=== PATIENT | female | born 1935 | race Caucasian/White ===

== ENCOUNTER 2020-09-04 22:46 | Inpatient (IN) | payer OTHER ==
[2020-09-04] MEDS ORDERED: DEXAMETHASONE SOD PHOSPHATE 10 MG/1 ML VIAL IVPUSH ONE (23:50)
[2020-09-04] MEDS ORDERED: ALBUTEROL SO4 2.5/IPRATROPIUM 0.5 INH SOL 3 ML VIAL.NEB. NEB ONE ×2 (23:50→23:52)
[2020-09-05] MEDS ORDERED: FUROSEMIDE 40 MG/4 ML INJECTABLE VIAL ONE ×2 (00:07→12:09)
[2020-09-05] MEDS ORDERED: DEXAMETHASONE SOD PHOSPHATE 10 MG/1 ML VIAL ONE (00:07)
[2020-09-05 00:44] LABS: ARTERIAL BLD GAS O2 SATURATION 84.6 mmHg (95-98); ARTERIAL BLOOD GAS PO2 56.3 mmHg (80-100); ARTERIAL BLOOD GAS pH 7.275 (7.350-7.450)
[2020-09-05 01:22] LABS: BASO % 0.5 % (0-2.0); EOS % 0.1 % (0-4.5); HEMATOCRIT 35.3 % (32.4-45.2); LYMPH % 3.7 % (8-40); MCH 30.4 pg (25.7-33.7); MCHC 31.3 g/dl (32.0-36.0); MEAN CELL VOLUME 97.2 fl (80-96); MEAN PLT VOLUME 7.7 fl (7.5-11.1); MONO % 4.6 % (3.8-10.2); NEUT % 91.1 % (42.8-82.8); PLATELET COUNT 389 K/MM3 (134-434); RBC 3.63 M/mm3 (3.60-5.2); RDW 21.2 % (11.6-15.6); WHITE BLOOD COUNT 9.1 K/mm3 (4.0-10.0)
[2020-09-05 01:30] LABS: INR 1.47 (0.83-1.09); PROTHROMBIN TIME (PATIENT) 17.6 SEC (9.7-13.0)
[2020-09-05 01:32] LABS: ACTIVATED PTT 31.7 SECONDS (25.2-36.5)
[2020-09-05 01:44] LABS: CHLORIDE 102 mmol/L (98-107); SODIUM 139 mmol/L (136-145)
[2020-09-05 01:46] LABS: CALCIUM 9.1 mg/dL (8.5-10.1)
[2020-09-05 01:47] LABS: ALBUMIN 3.1 g/dl (3.4-5.0); ANION GAP 0 MMOL/L (8-16); BLOOD UREA NITROGEN 26.6 mg/dL (7-18); CO2 37 mmol/L (21-32)
[2020-09-05 01:50] LABS: CREATININE 1.1 mg/dL (0.55-1.3); SGOT/AST 16 U/L (15-37); SGPT/ALT 7 U/L (13-61)
[2020-09-05 01:52] LABS: BILIRUBIN,TOTAL 0.6 mg/dL (0.2-1); TOT PROT 6.5 g/dl (6.4-8.2)
[2020-09-05 01:53] LABS: ALK PHOS 96 U/L (45-117)
[2020-09-05 01:55] LABS: N-TERMINAL BNP 3482.6 pg/ml (5-450)
[2020-09-05] MEDS ORDERED: FUROSEMIDE 40 MG/4 ML INJECTABLE VIAL IVPUSH ONE (01:56)
[2020-09-05 01:58] LABS: GLUCOSE,RANDOM 26 mg/dL (74-106)
[2020-09-05] MEDS ORDERED: DEXTROSE 50%-WATER 25 GM/50 ML DISP.SYRIN ONE (01:59)
[2020-09-05] MEDS ORDERED: DEXTROSE 50%-WATER - 25 GM/50 ML VIAL IVPUSH ONE (01:59)
[2020-09-05 02:36] LABS: ANISOCYTOSIS 2+; MACROCYTOSIS 1+; PLATELET ESTIMATE NORMAL
[2020-09-05] MEDS ORDERED: ALBUTEROL SO4 HFA INHALER IH PRN (04:39)
[2020-09-05] MEDS ORDERED: ALBUTEROL SO4 0.083% IH SOL 2.5 MG/3 ML VIAL.NEB. NEB PRN (04:39)
[2020-09-05] MEDS ORDERED: PANTOPRAZOLE 40 MG TABLET ONE (05:05)
[2020-09-05] MEDS ORDERED: CARBIDOPA/LEVODOPA 25/100 TABLET (FP) ONE ×2 (05:05→22:48)
[2020-09-05 05:37] LABS: ARTERIAL BLOOD GAS BASE EXCESS 3.2 mmol/L (-2-2); ARTERIAL BLOOD GAS PO2 69.6 mmHg (80-100); ARTERIAL BLOOD GAS pH 7.274 (7.350-7.450)
[2020-09-05 05:43] LABS: VENT MODE S/T
[2020-09-05] MEDS ORDERED: FUROSEMIDE 40 MG/4 ML INJECTABLE VIAL IVPUSH SCH (06:00)
[2020-09-05] MEDS: PANTOPRAZOLE 40 MG TABLET PO SCH (06:23)
[2020-09-05 07:34] LABS: BASO % 0.3 % (0-2.0); HEMATOCRIT 30.5 % (32.4-45.2); HEMOGLOBIN 9.7 GM/dL (10.7-15.3); MCH 29.8 pg (25.7-33.7); MCHC 31.7 g/dl (32.0-36.0); MEAN PLT VOLUME 7.5 fl (7.5-11.1); MONO % 1.2 % (3.8-10.2); NEUT % 94.5 % (42.8-82.8); PLATELET COUNT 370 K/MM3 (134-434); RBC 3.24 M/mm3 (3.60-5.2); RDW 20.9 % (11.6-15.6); WHITE BLOOD COUNT 7.1 K/mm3 (4.0-10.0)
[2020-09-05 07:47] LABS: CALCIUM 8.7 mg/dL (8.5-10.1)
[2020-09-05 07:48] LABS: BLOOD UREA NITROGEN 25.2 mg/dL (7-18); MAGNESIUM 2.3 mg/dL (1.8-2.4)
[2020-09-05 07:51] LABS: ALBUMIN 2.8 g/dl (3.4-5.0); CREATININE 0.9 mg/dL (0.55-1.3); PHOSPHOROUS 4.4 mg/dL (2.5-4.9)
[2020-09-05 07:52] LABS: BILIRUBIN,TOTAL 0.6 mg/dL (0.2-1); TOT PROT 6.3 g/dl (6.4-8.2)
[2020-09-05] MEDS ORDERED: PATIENT'S OWN MEDICATION (NON-FORMULARY) (Fluticasone Propionate [Flovent Hfa] 44 MCG Inha IH SCH (10:00)
[2020-09-05 10:20] LABS: ANISOCYTOSIS 1+; MACROCYTOSIS 1+; PLATELET ESTIMATE NORMAL
[2020-09-05] MEDS ORDERED: APIXABAN 5 MG TABLET ONE ×2 (12:09→22:47)
[2020-09-05] MEDS: APIXABAN 5 MG TABLET PO SCH (12:33)
[2020-09-05] MEDS: FUROSEMIDE 40 MG/4 ML INJECTABLE VIAL IVPUSH SCH ×2 (12:33→14:36)
[2020-09-05] MEDS: TIOTROPIUM/OLODATEROL HCL (STIOLTO) 4 GM INHALER IH SCH (12:42)
[2020-09-05 19:26] LABS: PH,URINE 5.5 (5.0-8.0); URINE APPEARANCE CLEAR; URINE BILIRUBIN NEGATIVE (NEGATIVE); URINE COLOR YELLOW; URINE GLUCOSE (UA) NEGATIVE (NEGATIVE); URINE KETONE NEGATIVE (NEGATIVE); URINE LEUK ESTERASE TRACE (NEGATIVE); URINE NITRITE POSITIVE (NEGATIVE); URINE PROTEIN NEGATIVE (NEGATIVE); URINE UROBILINOGEN 0.2 mg/dL (0.2-1.0)
[2020-09-05 19:31] LABS: EPI CELLS 7.7 /uL (0-25.1); HYALINE CASTS 0.51 /uL (0-3.1); URINE BACTERIA 8527.2 /uL (0-1359); URINE RBC 3.9 /uL (0-23.9); URINE WBC 52.9 /uL (0-25.8)
[2020-09-05] MEDS ORDERED: ATORVASTATIN CA 40 MG TABLET (FP) ONE (22:47)
[2020-09-06] MEDS: ATORVASTATIN CA 40 MG TABLET (FP) PO SCH ×2 (00:38→21:46)
[2020-09-06] MEDS: APIXABAN 5 MG TABLET PO SCH (00:38)
[2020-09-06] MEDS: MOMETASONE FUROATE 110 MCG/IH INHALER IH SCH ×2 (00:38→21:51)
[2020-09-06] MEDS: PRAMIPEXOLE DIHYDROCHLORIDE 0.5 MG TABLET PO SCH ×2 (00:39→21:46)
[2020-09-06] MEDS ORDERED: PT OWN MED DRAWER 7, Y5N ONE ×4 (05:31→21:07)
[2020-09-06] MEDS: FUROSEMIDE 40 MG/4 ML INJECTABLE VIAL IVPUSH SCH ×2 (05:34→14:06)
[2020-09-06] MEDS: PANTOPRAZOLE 40 MG TABLET PO SCH (06:01)
[2020-09-06 07:20] LABS: BASO % 0.2 % (0-2.0); HEMATOCRIT 30.3 % (32.4-45.2); HEMOGLOBIN 9.6 GM/dL (10.7-15.3); LYMPH % 5.2 % (8-40); MCH 29.5 pg (25.7-33.7); MCHC 31.8 g/dl (32.0-36.0); MEAN CELL VOLUME 92.9 fl (80-96); MEAN PLT VOLUME 7.4 fl (7.5-11.1); MONO % 8.7 % (3.8-10.2); NEUT % 85.9 % (42.8-82.8); PLATELET COUNT 412 K/MM3 (134-434); RBC 3.26 M/mm3 (3.60-5.2); RDW 20.6 % (11.6-15.6); WHITE BLOOD COUNT 12.3 K/mm3 (4.0-10.0)
[2020-09-06 07:36] LABS: CHLORIDE 99 mmol/L (98-107); SODIUM 138 mmol/L (136-145)
[2020-09-06 07:38] LABS: CALCIUM 9.1 mg/dL (8.5-10.1)
[2020-09-06 07:39] LABS: ANION GAP 1 MMOL/L (8-16); BLOOD UREA NITROGEN 36.9 mg/dL (7-18); CO2 39 mmol/L (21-32); GLUCOSE,RANDOM 129 mg/dL (74-106); MAGNESIUM 2.3 mg/dL (1.8-2.4)
[2020-09-06 07:42] LABS: PHOSPHOROUS 3.5 mg/dL (2.5-4.9); SGOT/AST 14 U/L (15-37); SGPT/ALT < 6 U/L (13-61)
[2020-09-06 07:47] LABS: TOT PROT 6.1 g/dl (6.4-8.2)
[2020-09-06 07:48] LABS: ALK PHOS 84 U/L (45-117)
[2020-09-06] MEDS: APIXABAN 2.5 MG TABLET PO SCH ×2 (09:16→21:46)
[2020-09-06] MEDS: TIOTROPIUM/OLODATEROL HCL (STIOLTO) 4 GM INHALER IH SCH (10:21)
[2020-09-07] MEDS ORDERED: PT OWN MED DRAWER 7, Y5N ONE ×3 (05:15→22:50)
[2020-09-07] MEDS: FUROSEMIDE 40 MG/4 ML INJECTABLE VIAL IVPUSH SCH ×2 (06:16→14:59)
[2020-09-07] MEDS: PANTOPRAZOLE 40 MG TABLET PO SCH (06:16)
[2020-09-07 07:00] LABS: BASO % 0.2 % (0-2.0); EOS % 0.1 % (0-4.5); HEMATOCRIT 30.8 % (32.4-45.2); HEMOGLOBIN 9.7 GM/dL (10.7-15.3); LYMPH % 6.8 % (8-40); MCH 29.4 pg (25.7-33.7); MCHC 31.6 g/dl (32.0-36.0); MEAN CELL VOLUME 93.2 fl (80-96); MEAN PLT VOLUME 7.1 fl (7.5-11.1); NEUT % 81.9 % (42.8-82.8); PLATELET COUNT 484 K/MM3 (134-434); RBC 3.31 M/mm3 (3.60-5.2); RDW 20.3 % (11.6-15.6); WHITE BLOOD COUNT 11.1 K/mm3 (4.0-10.0)
[2020-09-07 07:13] LABS: BLOOD UREA NITROGEN 42.7 mg/dL (7-18); CALCIUM 9.1 mg/dL (8.5-10.1); MAGNESIUM 2.1 mg/dL (1.8-2.4)
[2020-09-07 07:14] LABS: GLUCOSE,RANDOM 102 mg/dL (74-106)
[2020-09-07 07:15] LABS: SGPT/ALT < 6 U/L (13-61)
[2020-09-07 07:16] LABS: CREATININE 1.1 mg/dL (0.55-1.3); PHOSPHOROUS 3.6 mg/dL (2.5-4.9); SGOT/AST 14 U/L (15-37)
[2020-09-07 07:17] LABS: BILIRUBIN,TOTAL 0.6 mg/dL (0.2-1); TOT PROT 6.2 g/dl (6.4-8.2)
[2020-09-07 07:18] LABS: ALK PHOS 81 U/L (45-117)
[2020-09-07 07:20] LABS: ANION GAP 2 MMOL/L (8-16); CHLORIDE 97 mmol/L (98-107); CO2 40 mmol/L (21-32); SODIUM 139 mmol/L (136-145)
[2020-09-07] MEDS: APIXABAN 2.5 MG TABLET PO SCH ×2 (09:58→22:06)
[2020-09-07] MEDS: TIOTROPIUM/OLODATEROL HCL (STIOLTO) 4 GM INHALER IH SCH (09:58)
[2020-09-07] MEDS ORDERED: cefTRIAXone SODIUM 1 GM VIAL ONE (12:50)
[2020-09-07] MEDS ORDERED: DEXTROSE 5%-WATER - 50 ML IVPB ONE (12:51)
[2020-09-07] MEDS: CEFTRIAXONE 1 GM in DEXTROSE 5%-WATER - 50 ML IVPB SCH (13:22)
[2020-09-07 13:42] LABS: ARTERIAL BLD GAS O2 SATURATION 92.1 mmHg (95-98); ARTERIAL BLOOD GAS BASE EXCESS 10.7 mmol/L (-2-2); ARTERIAL BLOOD GAS PO2 61.8 mmHg (80-100); ARTERIAL BLOOD GAS pH 7.443 (7.350-7.450)
[2020-09-07 13:47] LABS: ALLENS TEST POSITIVE
[2020-09-07] MEDS: ATORVASTATIN CA 40 MG TABLET (FP) PO SCH (22:06)
[2020-09-07] MEDS: PRAMIPEXOLE DIHYDROCHLORIDE 0.5 MG TABLET PO SCH (22:41)
[2020-09-07] MEDS: MOMETASONE FUROATE 110 MCG/IH INHALER IH SCH (22:41)
[2020-09-08] MEDS ORDERED: PT OWN MED DRAWER 7, Y5N ONE ×4 (06:02→21:30)
[2020-09-08] MEDS: PANTOPRAZOLE 40 MG TABLET PO SCH (06:47)
[2020-09-08] MEDS: FUROSEMIDE 40 MG/4 ML INJECTABLE VIAL IVPUSH SCH (06:47)
[2020-09-08 06:54] LABS: BASO % 0.6 % (0-2.0); EOS % 0.4 % (0-4.5); HEMATOCRIT 32.3 % (32.4-45.2); HEMOGLOBIN 10.4 GM/dL (10.7-15.3); LYMPH % 10.5 % (8-40); MCH 29.6 pg (25.7-33.7); MCHC 32.1 g/dl (32.0-36.0); MEAN CELL VOLUME 92.3 fl (80-96); MONO % 13.7 % (3.8-10.2); NEUT % 74.8 % (42.8-82.8); PLATELET COUNT 488 K/MM3 (134-434); WHITE BLOOD COUNT 9.7 K/mm3 (4.0-10.0)
[2020-09-08 07:09] LABS: CHLORIDE 95 mmol/L (98-107); SODIUM 142 mmol/L (136-145)
[2020-09-08 07:18] LABS: ALBUMIN 2.9 g/dl (3.4-5.0); ANION GAP 4 MMOL/L (8-16); BLOOD UREA NITROGEN 24.5 mg/dL (7-18); CALCIUM 8.9 mg/dL (8.5-10.1); CO2 44 mmol/L (21-32); GLUCOSE,RANDOM 82 mg/dL (74-106)
[2020-09-08 07:21] LABS: CREATININE 0.7 mg/dL (0.55-1.3); PHOSPHOROUS 3.2 mg/dL (2.5-4.9); SGOT/AST 18 U/L (15-37)
[2020-09-08 07:22] LABS: SGPT/ALT < 6 U/L (13-61)
[2020-09-08 07:23] LABS: BILIRUBIN,TOTAL 1.2 mg/dL (0.2-1)
[2020-09-08 07:24] LABS: ALK PHOS 84 U/L (45-117)
[2020-09-08] MEDS ORDERED: DEXTROSE 5%-WATER - 50 ML IVPB ONE (09:47)
[2020-09-08] MEDS ORDERED: cefTRIAXone SODIUM 1 GM VIAL ONE (09:47)
[2020-09-08] MEDS: CEFTRIAXONE 1 GM in DEXTROSE 5%-WATER - 50 ML IVPB SCH (09:53)
[2020-09-08] MEDS: APIXABAN 2.5 MG TABLET PO SCH ×2 (09:53→22:51)
[2020-09-08] MEDS: TIOTROPIUM/OLODATEROL HCL (STIOLTO) 4 GM INHALER IH SCH (11:27)
[2020-09-08 14:26] LABS: ARTERIAL BLD GAS O2 SATURATION 92.4 mmHg (95-98); ARTERIAL BLOOD GAS BASE EXCESS 17.3 mmol/L (-2-2); ARTERIAL BLOOD GAS PO2 64.7 mmHg (80-100); ARTERIAL BLOOD GAS pH 7.433 (7.350-7.450)
[2020-09-08] MEDS: acetaZOLAMIDE 250 MG TABLET PO SCH (15:19)
[2020-09-08] MEDS: ALBUTEROL SO4 2.5/IPRATROPIUM 0.5 INH SOL 3 ML VIAL.NEB. NEB SCH (21:00)
[2020-09-08] MEDS: ATORVASTATIN CA 40 MG TABLET (FP) PO SCH (22:51)
[2020-09-08] MEDS: PRAMIPEXOLE DIHYDROCHLORIDE 0.5 MG TABLET PO SCH (22:51)
[2020-09-08] MEDS: MOMETASONE FUROATE 110 MCG/IH INHALER IH SCH (22:53)
[2020-09-09] MEDS ORDERED: PT OWN MED DRAWER 7, Y5N ONE ×3 (05:55→20:41)
[2020-09-09] MEDS: PANTOPRAZOLE 40 MG TABLET PO SCH (06:11)
[2020-09-09] MEDS: ALBUTEROL SO4 2.5/IPRATROPIUM 0.5 INH SOL 3 ML VIAL.NEB. NEB SCH ×4 (07:50→21:30)
[2020-09-09 09:08] LABS: BASO % 0.6 % (0-2.0); EOS % 0.4 % (0-4.5); HEMATOCRIT 33.7 % (32.4-45.2); HEMOGLOBIN 10.8 GM/dL (10.7-15.3); LYMPH % 9.2 % (8-40); MCH 29.9 pg (25.7-33.7); MCHC 32.2 g/dl (32.0-36.0); MEAN CELL VOLUME 92.7 fl (80-96); MEAN PLT VOLUME 7.2 fl (7.5-11.1); NEUT % 79.8 % (42.8-82.8); PLATELET COUNT 497 K/MM3 (134-434); RBC 3.63 M/mm3 (3.60-5.2); RDW 19.4 % (11.6-15.6)
[2020-09-09] MEDS ORDERED: cefTRIAXone SODIUM 1 GM VIAL ONE (09:11)
[2020-09-09] MEDS ORDERED: DEXTROSE 5%-WATER - 50 ML IVPB ONE (09:11)
[2020-09-09] MEDS: CEFTRIAXONE 1 GM in DEXTROSE 5%-WATER - 50 ML IVPB SCH (09:12)
[2020-09-09] MEDS: APIXABAN 2.5 MG TABLET PO SCH ×2 (09:12→21:14)
[2020-09-09] MEDS: FUROSEMIDE 40 MG/4 ML INJECTABLE VIAL IVPUSH SCH (09:12)
[2020-09-09] MEDS: acetaZOLAMIDE 250 MG TABLET PO SCH (09:13)
[2020-09-09] MEDS: TIOTROPIUM/OLODATEROL HCL (STIOLTO) 4 GM INHALER IH SCH (09:14)
[2020-09-09 09:32] LABS: CHLORIDE 96 mmol/L (98-107); SODIUM 141 mmol/L (136-145)
[2020-09-09 09:53] LABS: BLOOD UREA NITROGEN 17.7 mg/dL (7-18)
[2020-09-09 09:54] LABS: CALCIUM 9.5 mg/dL (8.5-10.1)
[2020-09-09 09:55] LABS: ALBUMIN 2.8 g/dl (3.4-5.0); CO2 40 mmol/L (21-32); GLUCOSE,RANDOM 108 mg/dL (74-106); MAGNESIUM 1.9 mg/dL (1.8-2.4)
[2020-09-09 09:56] LABS: CREATININE 0.7 mg/dL (0.55-1.3); SGOT/AST 16 U/L (15-37); SGPT/ALT < 6 U/L (13-61)
[2020-09-09 09:57] LABS: PHOSPHOROUS 3.4 mg/dL (2.5-4.9)
[2020-09-09 09:58] LABS: BILIRUBIN,TOTAL 1.2 mg/dL (0.2-1); TOT PROT 5.9 g/dl (6.4-8.2)
[2020-09-09 09:59] LABS: ALK PHOS 82 U/L (45-117)
[2020-09-09 10:03] LABS: ANION GAP 5 MMOL/L (8-16)
[2020-09-09] MEDS: ATORVASTATIN CA 40 MG TABLET (FP) PO SCH (21:14)
[2020-09-09] MEDS: PRAMIPEXOLE DIHYDROCHLORIDE 0.5 MG TABLET PO SCH (21:14)
[2020-09-09] MEDS: MOMETASONE FUROATE 110 MCG/IH INHALER IH SCH (21:15)
[2020-09-10] MEDS: KCL 10 MEQ IVPB 10 MEQ/100 ML INFUS.BAG IVPB SCH ×3 (00:51→03:33)
[2020-09-10] MEDS: PANTOPRAZOLE 40 MG TABLET PO SCH (06:27)
[2020-09-10] MEDS: ALBUTEROL SO4 2.5/IPRATROPIUM 0.5 INH SOL 3 ML VIAL.NEB. NEB SCH ×4 (08:21→20:01)
[2020-09-10] MEDS ORDERED: POTASSIUM CHLORIDE TABS 20 MEQ TABLET.ER (FP) PO ONE (09:26)
[2020-09-10] MEDS ORDERED: cefTRIAXone SODIUM 1 GM VIAL ONE (09:55)
[2020-09-10] MEDS ORDERED: DEXTROSE 5%-WATER - 50 ML IVPB ONE (09:55)
[2020-09-10] MEDS: CEFTRIAXONE 1 GM in DEXTROSE 5%-WATER - 50 ML IVPB SCH (09:56)
[2020-09-10] MEDS: TIOTROPIUM/OLODATEROL HCL (STIOLTO) 4 GM INHALER IH SCH (09:57)
[2020-09-10] MEDS: APIXABAN 2.5 MG TABLET PO SCH ×2 (09:57→21:34)
[2020-09-10] MEDS: FUROSEMIDE 40 MG/4 ML INJECTABLE VIAL IVPUSH SCH (09:57)
[2020-09-10] MEDS ORDERED: PT OWN MED DRAWER 7, Y5N ONE ×2 (20:32→20:41)
[2020-09-10] MEDS: ATORVASTATIN CA 40 MG TABLET (FP) PO SCH (21:34)
[2020-09-10] MEDS: PRAMIPEXOLE DIHYDROCHLORIDE 0.5 MG TABLET PO SCH (21:34)
[2020-09-10] MEDS: MOMETASONE FUROATE 110 MCG/IH INHALER IH SCH (21:36)
[2020-09-11] MEDS: ALBUTEROL SO4 2.5/IPRATROPIUM 0.5 INH SOL 3 ML VIAL.NEB. NEB SCH ×4 (07:45→20:26)
[2020-09-11 07:55] LABS: HEMATOCRIT 31.5 % (32.4-45.2); HEMOGLOBIN 10.3 GM/dL (10.7-15.3); MCH 30.4 pg (25.7-33.7); MCHC 32.6 g/dl (32.0-36.0); MEAN CELL VOLUME 93.2 fl (80-96); MEAN PLT VOLUME 7.6 fl (7.5-11.1); PLATELET COUNT 421 K/MM3 (134-434); RBC 3.38 M/mm3 (3.60-5.2); RDW 19.3 % (11.6-15.6); WHITE BLOOD COUNT 8.2 K/mm3 (4.0-10.0)
[2020-09-11 08:29] LABS: BLOOD UREA NITROGEN 22.6 mg/dL (7-18); CALCIUM 8.8 mg/dL (8.5-10.1); MAGNESIUM 2.2 mg/dL (1.8-2.4)
[2020-09-11 08:33] LABS: CREATININE 0.7 mg/dL (0.55-1.3); PHOSPHOROUS 3.2 mg/dL (2.5-4.9)
[2020-09-11] MEDS ORDERED: cefTRIAXone SODIUM 1 GM VIAL ONE (09:40)
[2020-09-11] MEDS ORDERED: DEXTROSE 5%-WATER - 50 ML IVPB ONE (09:40)
[2020-09-11] MEDS ORDERED: POTASSIUM CHLORIDE ORAL LIQUID 20 MEQ/15 ML PO ONE (09:45)
[2020-09-11] MEDS: KCL 10 MEQ IVPB 10 MEQ/100 ML INFUS.BAG IVPB SCH ×3 (09:50→13:35)
[2020-09-11] MEDS: PANTOPRAZOLE 40 MG TABLET PO SCH (09:50)
[2020-09-11] MEDS: CEFTRIAXONE 1 GM in DEXTROSE 5%-WATER - 50 ML IVPB SCH (09:50)
[2020-09-11] MEDS: FUROSEMIDE 40 MG TABLET (FP) PO SCH (10:12)
[2020-09-11] MEDS: APIXABAN 2.5 MG TABLET PO SCH ×2 (10:12→22:45)
[2020-09-11] MEDS: TIOTROPIUM/OLODATEROL HCL (STIOLTO) 4 GM INHALER IH SCH (10:17)
[2020-09-11] MEDS ORDERED: PT OWN MED DRAWER 7, Y5N ONE ×2 (13:28→22:44)
[2020-09-11] MEDS: PRAMIPEXOLE DIHYDROCHLORIDE 0.5 MG TABLET PO SCH (22:45)
[2020-09-11] MEDS: ATORVASTATIN CA 40 MG TABLET (FP) PO SCH (22:45)
[2020-09-11] MEDS: MOMETASONE FUROATE 110 MCG/IH INHALER IH SCH (22:46)
[2020-09-12] MEDS: PANTOPRAZOLE 40 MG TABLET PO SCH (06:35)
[2020-09-12] MEDS: ALBUTEROL SO4 2.5/IPRATROPIUM 0.5 INH SOL 3 ML VIAL.NEB. NEB SCH ×4 (08:25→20:30)
[2020-09-12 08:27] LABS: EOS % 1.2 % (0-4.5); HEMATOCRIT 31.9 % (32.4-45.2); HEMOGLOBIN 10.5 GM/dL (10.7-15.3); LYMPH % 10.3 % (8-40); MCH 30.3 pg (25.7-33.7); MEAN CELL VOLUME 91.7 fl (80-96); MEAN PLT VOLUME 7.4 fl (7.5-11.1); MONO % 8.6 % (3.8-10.2); NEUT % 78.9 % (42.8-82.8); PLATELET COUNT 377 K/MM3 (134-434); RBC 3.48 M/mm3 (3.60-5.2); RDW 19.1 % (11.6-15.6); WHITE BLOOD COUNT 9.6 K/mm3 (4.0-10.0)
[2020-09-12 09:04] LABS: CHLORIDE 102 mmol/L (98-107); SODIUM 142 mmol/L (136-145)
[2020-09-12 09:08] LABS: CALCIUM 9.2 mg/dL (8.5-10.1)
[2020-09-12 09:10] LABS: ALBUMIN 2.8 g/dl (3.4-5.0); ANION GAP 5 MMOL/L (8-16); BLOOD UREA NITROGEN 21.5 mg/dL (7-18); CO2 36 mmol/L (21-32); GLUCOSE,RANDOM 98 mg/dL (74-106); MAGNESIUM 2.1 mg/dL (1.8-2.4)
[2020-09-12 09:12] LABS: CREATININE 0.7 mg/dL (0.55-1.3); PHOSPHOROUS 2.5 mg/dL (2.5-4.9); SGOT/AST 15 U/L (15-37)
[2020-09-12 09:15] LABS: ALK PHOS 76 U/L (45-117)
[2020-09-12 09:18] LABS: SGPT/ALT < 6 U/L (13-61)
[2020-09-12] MEDS ORDERED: PT OWN MED DRAWER 7, Y5N ONE ×3 (09:30→20:20)
[2020-09-12] MEDS ORDERED: DEXTROSE 5%-WATER - 50 ML IVPB ONE (09:30)
[2020-09-12] MEDS ORDERED: cefTRIAXone SODIUM 1 GM VIAL ONE (09:30)
[2020-09-12] MEDS: FUROSEMIDE 40 MG TABLET (FP) PO SCH (09:34)
[2020-09-12] MEDS: APIXABAN 2.5 MG TABLET PO SCH ×2 (09:34→21:43)
[2020-09-12] MEDS: CEFTRIAXONE 1 GM in DEXTROSE 5%-WATER - 50 ML IVPB SCH (09:35)
[2020-09-12] MEDS: TIOTROPIUM/OLODATEROL HCL (STIOLTO) 4 GM INHALER IH SCH (09:40)
[2020-09-12] MEDS: ATORVASTATIN CA 40 MG TABLET (FP) PO SCH (21:43)
[2020-09-12] MEDS: MOMETASONE FUROATE 110 MCG/IH INHALER IH SCH (21:45)
[2020-09-12] MEDS: PRAMIPEXOLE DIHYDROCHLORIDE 0.5 MG TABLET PO SCH (21:45)
[2020-09-13] MEDS: PANTOPRAZOLE 40 MG TABLET PO SCH (06:07)
[2020-09-13] MEDS: ALBUTEROL SO4 2.5/IPRATROPIUM 0.5 INH SOL 3 ML VIAL.NEB. NEB SCH ×3 (08:38→15:35)
[2020-09-13] MEDS ORDERED: PT OWN MED DRAWER 7, Y5N ONE ×3 (09:04→21:54)
[2020-09-13] MEDS ORDERED: cefTRIAXone SODIUM 1 GM VIAL ONE (09:04)
[2020-09-13] MEDS ORDERED: DEXTROSE 5%-WATER - 50 ML IVPB ONE (09:05)
[2020-09-13] MEDS: CEFTRIAXONE 1 GM in DEXTROSE 5%-WATER - 50 ML IVPB SCH (09:10)
[2020-09-13] MEDS: APIXABAN 2.5 MG TABLET PO SCH ×2 (09:10→21:58)
[2020-09-13] MEDS: FUROSEMIDE 40 MG TABLET (FP) PO SCH (09:10)
[2020-09-13] MEDS: TIOTROPIUM/OLODATEROL HCL (STIOLTO) 4 GM INHALER IH SCH (09:11)
[2020-09-13 09:17] VITALS: BMI 20.1
[2020-09-13] MEDS: PRAMIPEXOLE DIHYDROCHLORIDE 0.5 MG TABLET PO SCH (21:57)
[2020-09-13] MEDS: ATORVASTATIN CA 40 MG TABLET (FP) PO SCH (21:57)
[2020-09-13] MEDS: MOMETASONE FUROATE 110 MCG/IH INHALER IH SCH (21:58)
[2020-09-14] MEDS: ALBUTEROL SO4 2.5/IPRATROPIUM 0.5 INH SOL 3 ML VIAL.NEB. NEB SCH ×5 (04:06→21:00)
[2020-09-14] MEDS ORDERED: PT OWN MED DRAWER 7, Y5N ONE ×2 (06:43→20:52)
[2020-09-14] MEDS: PANTOPRAZOLE 40 MG TABLET PO SCH (06:48)
[2020-09-14 08:16] LABS: EOS % 1.3 % (0-4.5); HEMATOCRIT 32.8 % (32.4-45.2); HEMOGLOBIN 10.5 GM/dL (10.7-15.3); LYMPH % 9.3 % (8-40); MCH 29.4 pg (25.7-33.7); MCHC 31.9 g/dl (32.0-36.0); MEAN CELL VOLUME 92.1 fl (80-96); MEAN PLT VOLUME 7.7 fl (7.5-11.1); MONO % 10.9 % (3.8-10.2); NEUT % 77.5 % (42.8-82.8); PLATELET COUNT 313 K/MM3 (134-434); RBC 3.56 M/mm3 (3.60-5.2); RDW 19.5 % (11.6-15.6); WHITE BLOOD COUNT 8.9 K/mm3 (4.0-10.0)
[2020-09-14] MEDS: APIXABAN 2.5 MG TABLET PO SCH ×2 (11:21→21:23)
[2020-09-14] MEDS: FUROSEMIDE 40 MG TABLET (FP) PO SCH (11:21)
[2020-09-14] MEDS: TIOTROPIUM/OLODATEROL HCL (STIOLTO) 4 GM INHALER IH SCH (11:22)
[2020-09-14 11:44] LABS: CHLORIDE 96 mmol/L (98-107); SODIUM 138 mmol/L (136-145)
[2020-09-14 11:45] LABS: ALBUMIN 3.1 g/dl (3.4-5.0)
[2020-09-14 11:47] LABS: ANION GAP 8 MMOL/L (8-16); BLOOD UREA NITROGEN 22.9 mg/dL (7-18); CO2 34 mmol/L (21-32); GLUCOSE,RANDOM 64 mg/dL (74-106)
[2020-09-14 11:48] LABS: SGPT/ALT < 6 U/L (13-61)
[2020-09-14 11:49] LABS: CREATININE 0.9 mg/dL (0.55-1.3); PHOSPHOROUS 3.7 mg/dL (2.5-4.9); SGOT/AST 17 U/L (15-37)
[2020-09-14 11:50] LABS: BILIRUBIN,TOTAL 0.8 mg/dL (0.2-1); TOT PROT 6.3 g/dl (6.4-8.2)
[2020-09-14 11:51] LABS: ALK PHOS 86 U/L (45-117)
[2020-09-14] MEDS ORDERED: POTASSIUM CHLORIDE ORAL LIQUID 20 MEQ/15 ML PO ONE (15:23)
[2020-09-14] MEDS: KCL 10 MEQ IVPB 10 MEQ/100 ML INFUS.BAG IVPB SCH ×4 (16:30→19:53)
[2020-09-14] MEDS: PRAMIPEXOLE DIHYDROCHLORIDE 0.5 MG TABLET PO SCH (21:23)
[2020-09-14] MEDS: ATORVASTATIN CA 40 MG TABLET (FP) PO SCH (21:23)
[2020-09-14] MEDS: MOMETASONE FUROATE 110 MCG/IH INHALER IH SCH (21:24)
[2020-09-15] MEDS: PANTOPRAZOLE 40 MG TABLET PO SCH (06:05)
[2020-09-15] MEDS: ALBUTEROL SO4 2.5/IPRATROPIUM 0.5 INH SOL 3 ML VIAL.NEB. NEB SCH ×4 (08:28→20:40)
[2020-09-15 09:22] LABS: BLOOD UREA NITROGEN 13.3 mg/dL (7-18)
[2020-09-15 09:25] LABS: CREATININE 0.6 mg/dL (0.55-1.3)
[2020-09-15] MEDS ORDERED: PT OWN MED DRAWER 7, Y5N ONE ×2 (10:29→21:02)
[2020-09-15] MEDS: APIXABAN 2.5 MG TABLET PO SCH ×2 (10:32→21:26)
[2020-09-15] MEDS: FUROSEMIDE 40 MG TABLET (FP) PO SCH (10:32)
[2020-09-15] MEDS: TIOTROPIUM/OLODATEROL HCL (STIOLTO) 4 GM INHALER IH SCH (10:33)
[2020-09-15] MEDS: PRAMIPEXOLE DIHYDROCHLORIDE 0.5 MG TABLET PO SCH (21:27)
[2020-09-15] MEDS: ATORVASTATIN CA 40 MG TABLET (FP) PO SCH (21:27)
[2020-09-15] MEDS: MOMETASONE FUROATE 110 MCG/IH INHALER IH SCH (21:28)
[2020-09-16] MEDS: ALBUTEROL SO4 2.5/IPRATROPIUM 0.5 INH SOL 3 ML VIAL.NEB. NEB SCH ×4 (07:30→19:50)
[2020-09-16] MEDS ORDERED: PT OWN MED DRAWER 7, Y5N ONE ×2 (08:03→20:19)
[2020-09-16 08:54] LABS: EOS % 1.3 % (0-4.5); HEMATOCRIT 33.6 % (32.4-45.2); HEMOGLOBIN 10.5 GM/dL (10.7-15.3); LYMPH % 11.8 % (8-40); MCH 28.8 pg (25.7-33.7); MCHC 31.4 g/dl (32.0-36.0); MEAN CELL VOLUME 91.8 fl (80-96); MEAN PLT VOLUME 8.4 fl (7.5-11.1); MONO % 8.9 % (3.8-10.2); PLATELET COUNT 288 K/MM3 (134-434); RBC 3.66 M/mm3 (3.60-5.2); RDW 19.2 % (11.6-15.6); WHITE BLOOD COUNT 9.8 K/mm3 (4.0-10.0)
[2020-09-16 09:03] LABS: CALCIUM 9.2 mg/dL (8.5-10.1)
[2020-09-16 09:04] LABS: BLOOD UREA NITROGEN 17.7 mg/dL (7-18)
[2020-09-16 09:07] LABS: CREATININE 0.9 mg/dL (0.55-1.3)
[2020-09-16] MEDS: APIXABAN 2.5 MG TABLET PO SCH ×2 (10:27→21:00)
[2020-09-16] MEDS: FUROSEMIDE 40 MG TABLET (FP) PO SCH (10:28)
[2020-09-16] MEDS: TIOTROPIUM/OLODATEROL HCL (STIOLTO) 4 GM INHALER IH SCH (11:41)
[2020-09-16] MEDS: ATORVASTATIN CA 40 MG TABLET (FP) PO SCH (21:04)
[2020-09-16] MEDS: MOMETASONE FUROATE 110 MCG/IH INHALER IH SCH (21:04)
[2020-09-16] MEDS: PRAMIPEXOLE DIHYDROCHLORIDE 0.5 MG TABLET PO SCH (21:04)
[2020-09-17] MEDS: PANTOPRAZOLE 40 MG TABLET PO SCH ×2 (06:03→19:33)
[2020-09-17] MEDS: ALBUTEROL SO4 2.5/IPRATROPIUM 0.5 INH SOL 3 ML VIAL.NEB. NEB SCH ×4 (07:30→20:06)
[2020-09-17] MEDS ORDERED: PT OWN MED DRAWER 7, Y5N ONE ×2 (09:50→21:23)
[2020-09-17] MEDS: FUROSEMIDE 40 MG TABLET (FP) PO SCH (09:52)
[2020-09-17] MEDS: APIXABAN 2.5 MG TABLET PO SCH ×2 (09:52→21:26)
[2020-09-17] MEDS: TIOTROPIUM/OLODATEROL HCL (STIOLTO) 4 GM INHALER IH SCH (10:30)
[2020-09-17] MEDS ORDERED: OLANZapine 5 MG TABLET PO ONE (20:47)
[2020-09-17] MEDS: ATORVASTATIN CA 40 MG TABLET (FP) PO SCH (21:26)
[2020-09-17] MEDS: PRAMIPEXOLE DIHYDROCHLORIDE 0.5 MG TABLET PO SCH (21:26)
[2020-09-17] MEDS: MOMETASONE FUROATE 110 MCG/IH INHALER IH SCH (21:34)
[2020-09-18] MEDS ORDERED: PT OWN MED DRAWER 7, Y5N ONE ×3 (06:08→14:55)
[2020-09-18] MEDS: PANTOPRAZOLE 40 MG TABLET PO SCH (06:22)
[2020-09-18] MEDS: ALBUTEROL SO4 2.5/IPRATROPIUM 0.5 INH SOL 3 ML VIAL.NEB. NEB SCH ×2 (07:58→12:15)
[2020-09-18] MEDS: TIOTROPIUM/OLODATEROL HCL (STIOLTO) 4 GM INHALER IH SCH (10:16)
[2020-09-18] MEDS: APIXABAN 2.5 MG TABLET PO SCH (10:16)
[2020-09-18] MEDS: FUROSEMIDE 40 MG TABLET (FP) PO SCH (10:16)
[2020-09-18] MEDS ORDERED: FUROSEMIDE 20 MG TABLET (FP) PO SCH (12:28)
[2020-09-18 14:47] VITALS: BP 104/62; PULSE 101; TEMP 97.8
== END 2020-09-18 15:38 | DRG 291 ==
LOC: JER 22:46 → JERBED 09-05 03:03 → J4S 09-06 04:21 → J8W 09-07 11:46
PROVIDERS: ADMIT Hospitalist; ATTEND Internal Medicine
DX: I11.0 Hypertensive heart disease with heart failure (principal); J96.21 Acute and chronic respiratory failure with hypoxia; J96.22 Acute and chronic respiratory failure with hypercapnia; J44.1 Chronic obstructive pulmonary disease with (acute) exacerbation; N39.0 Urinary tract infection, site not specified; E87.2 Acidosis; E87.3 Alkalosis; I50.33 Acute on chronic diastolic (congestive) heart failure; G20 Parkinson's disease; I48.91 Unspecified atrial fibrillation; I10 Essential (primary) hypertension; F03.90 Unspecified dementia, unspecified severity, without behavioral disturbance, psychotic disturbance, mood disturbance, and anxiety; I27.20 Pulmonary hypertension, unspecified; E78.5 Hyperlipidemia, unspecified; I73.9 Peripheral vascular disease, unspecified; E87.5 Hyperkalemia; B96.20 Unspecified Escherichia coli [E. coli] as the cause of diseases classified elsewhere; E87.8 Other disorders of electrolyte and fluid balance, not elsewhere classified; R77.8 Other specified abnormalities of plasma proteins; Z99.81 Dependence on supplemental oxygen
CPT/HCPCS: 36415; 36600; 71045-TC-FY; 80048; 80053; 81003; 82728; 82803; 82962; 83036; 83615; 83735; 83880; 84100; 84484; 85025; 85027; 85379; 85610; 85651; 85730; 86140; 87086; 87186; 87804; 93005; 93010; 94640; 94660; 97116-GP; 97162-GP; 99285-25; C9803; J1100; J3535; U0003